=== PATIENT | female | born 1980 | race Native Hawaiian/Other Pacific Islander ===

== ENCOUNTER 2017-03-11 12:39 | Emergency (ER) | payer SELFPAY ==
[2017-03-11] MEDS ORDERED: NS 0.9% 1000 ML* 1,000 ML IV ONE (14:24)
--- NOTE | 2017-03-11 14:56 | RAD ---
HISTORY: Syncope COMPARISONS: None VIEWS: 4: Frontal dual-energy and lateral views of the chest. FINDINGS: CARDIOMEDIASTINAL SILHOUETTE: The cardiomediastinal silhouette is normal. TRISH: The trish are normal. PLEURA: The costophrenic angles are sharp. No pleural abnormalities are noted. LUNG PARENCHYMA: The lungs are clear. ABDOMEN: The upper abdomen is clear. There is no subphrenic gas. BONES AND SOFT TISSUES: No bone or soft tissue abnormalities are noted. OTHER: None. IMPRESSION: NO ACTIVE CARDIOPULMONARY DISEASE.
[2017-03-11 15:06] LABS: Hematocrit 37 % (35-47); Hemoglobin 11.7 g/dl (12.0-16.0); Mean Corpuscular HGB Conc 32 g/dl (31-36); Mean Corpuscular Hemoglobin 31 pg (27-31); Mean Corpuscular Volume 97 fL (80-97); Mean Platelet Volume 11 um3 (7.4-10.4); Red Blood Count 3.78 10^6/ul (4.0-5.4); Red Cell Distribution Width 18 % (10.5-15)
[2017-03-11 15:08] LABS: Comments Flag Yes
--- NOTE | 2017-03-11 15:08 | RAD ---
HISTORY: Syncope COMPARISONS: None TECHNIQUE: Multiple contiguous axial CT scans were obtained of the head without intravenous contrast. FINDINGS: HEMORRHAGE/INFARCT: There is no hemorrhage or acute infarct. MASSES/SHIFT: There is no mass or shift. EXTRA-AXIAL SPACES: There are no extra-axial fluid collections. SULCI AND VENTRICLES: The sulci and ventricles are normal in size and position for the patient's stated age. CEREBRUM: There are no focal parenchymal abnormalities. BRAINSTEM: There are no focal parenchymal abnormalities. CEREBELLUM: There are no focal parenchymal abnormalities. VESSELS: The vessels are grossly normal. PARANASAL SINUSES: The paranasal sinuses are clear. ORBITS: The orbits are unremarkable. BONES AND SOFT TISSUE: No bone or soft tissue abnormalities are noted. OTHER: None IMPRESSION: NO ACUTE INTRACRANIAL PATHOLOGY.
[2017-03-11 15:10] LABS: Add Diff/Slide Review? Slide Review Added
[2017-03-11 15:21] LABS: ALT 38 U/L (7-52); AST 125 U/L (13-39); Albumin 3.4 g/dL (3.2-5.2); Alkaline Phosphatase 102 U/L (34-104); Anion Gap 7 mmol/L (2-11); BUN/Creatinine Ratio 6.9 (8-20); Blood Urea Nitrogen 4 mg/dL (6-24); CO2 Carbon Dioxide 28 mmol/L (22-32); Calcium 9.2 mg/dL (8.6-10.3); Chloride 97 mmol/L (101-111); EGFR African American 149.6 (>60); EGFR Non-African American 116.3 (>60); Globulin 4.1 g/dL (2-4); Glucose 93 mg/dL (70-100); Magnesium 1.8 mg/dL (1.9-2.7); Potassium 3.9 mmol/L (3.5-5.0); Sodium 132 mmol/L (133-145); Total Protein 7.5 g/dL (6.4-8.9)
[2017-03-11 15:23] LABS: Troponin I 0.02 ng/mL (<0.04)
[2017-03-11 15:59] LABS: Alcohol < 10 mg/dL (<10)
[2017-03-11 16:02] LABS: TSH (Thyroid Stimulating Horm) 3.06 mcIU/mL (0.34-5.60)
[2017-03-11 16:30] LABS: Urine Bacteria Absent (Absent); Urine Bilirubin Negative (Negative); Urine Glucose Negative (Negative); Urine Nitrite Negative (Negative)
[2017-03-11] MEDS ORDERED: Tetan/Diph/Pertus SYR(Tdap)* 0.5 ML SYR(BOOSTRIX) use SYR IM ONE (16:53)
[2017-03-11 18:06] VITALS: BP 132/87
--- NOTE | 2017-03-12 09:06 | ED ---
Miko Turner Alfonso, scribed for Duc Ricks MD on 03/11/17 at 1427 . Burn - HPI Summary HPI Summary: This patient is a 36 year old F presenting to [facility] with a chief complaint of hand lockwood that occurred at 1200 earlier today. Pt reports she was at work at [employer] and I pulled the basket to fast and got burned when oil splattered on her bilateral hands. Pt rates the pain 6/10 in severity. Symptoms aggravated and alleviated by nothing. Pt reports syncope, dizziness, and lightheadedness. - History of Current Complaint Chief Complaint: EDDizziness Stated Complaint: AMS Time Seen by Provider: 03/11/17 13:11 Hx Obtained From: Patient Occurred: Hours Ago - 1200 today Length of Exposure: Unknown Onset Severity: Moderate Current Severity: Moderate Pain Intensity: 6 Pain Scale Used: 0-10 Numeric Location: RUE - Hand, LUE - Hand Aggravating: Nothing Alleviating: Nothing Associated Signs & Symptoms: Positive: LOC/Duration: - Syncope, dizziness, and lightheadedness - Allergy/Home Medications Allergies/Adverse Reactions: Allergies Allergy/AdvReac Type Severity Reaction Status Date / Time No Known Allergies Allergy Verified 07/03/15 12:20 Home Medications: Home Medications Diphenhydramine-Acetaminophen [Tylenol Pm Extra Strength 500-25 mg] 1 tab PO BEDTIME PRN 03/11/17 [History Confirmed 03/11/17] Escitalopram (NF) [Lexapro 10 mg (NF)] 10 mg PO DAILY 03/11/17 [History Confirmed 03/11/17] Naproxen TAB* [Naprosyn 250 mg TAB*] 500 mg PO BID WITH MEALS 03/11/17 [History Confirmed 03/11/17] PMH/Surg Hx/FS Hx/Imm Hx - Surgical History Surgery Procedure, Year, and Place: vaginal cyst (not sure) - Immunization History Date of Tetanus Vaccine: 2015 Date of Influenza Vaccine: NO Infectious Disease History: No Infectious Disease History: Denies: Hx Clostridium Difficile, Hx Hepatitis, Hx Human Immunodeficiency Virus (HIV), Hx of Known/Suspected MRSA, Hx Shingles, Hx Tuberculosis, Hx Known/ Suspected VRE, Hx Known/Suspected VRSA, History Other Infectious Disease, Traveled Outside the [place] in Last 30 Days - Family History Known Family History: Positive: Other - Cancer - Social History Alcohol Use: Daily Alcohol Amount: 2 glasses of wine Substance Use Type: Reports: None Smoking Status (MU): Heavy Every Day Tobacco Smoker Amount Used/How Often: 1/2-1 ppd Review of Systems Positive: Other - Bilateral hand lockwood Neurological: Other - Positive dizzy and lightheaded Positive: Syncope All Other Systems Reviewed And Are Negative: Yes Physical Exam - Summary Physical Exam Summary: VITAL SIGNS: Reviewed. GENERAL: Patient is a thin female who is lying comfortable in the stretcher. Patient is not in any acute respiratory distress. HEAD AND FACE: Normocephalic EYES: PERRLA, EOMI x 2. EARS: Hearing grossly intact. MOUTH: Oropharynx within normal limits. NECK: Supple, trachea is midline, no adenopathy, no JVD, no carotid bruit. CHEST: Symmetric, no tenderness at palpation LUNGS: Clear to auscultation bilaterally. No wheezing or crackles. CVS: Regular rate and rhythm, S1 and S2 present, no murmurs or gallops appreciated. ABDOMEN: Soft, non-tender. Bowel sounds are normal. No abdominal abnormal pulsations. EXTREMITIES: Full ROM in all major joints, no edema, no cyanosis or clubbing. NEURO: Alert and oriented x 3. No acute neurological deficits. Speech is normal and follows commands. SKIN: Second degree at left pinky and left hand dorsal aspect 1 cm x .5 cm. Second degree burn with partial thickness at right hand dorsal aspect. No circumferential. Triage Information Reviewed: Yes Vital Signs On Initial Exam: Initial Vitals Temp Pulse Resp BP Pulse Ox 99 F 90 16 137/76 100 03/11/17 12:50 03/11/17 12:50 03/11/17 12:50 03/11/17 12:50 03/11/17 12:50 Vital Signs Reviewed: Yes - [place] Coma Scale Coma Scale Total: 15 Burn Calculation - [place] Formula for Fluid Resuscitation Weight: 96 lb 24 -Hour Fluid Replacement: 0.0 Diagnostics - Vital Signs Vital Signs Temp Pulse Resp BP Pulse Ox 03/11/17 14:00 90 18 126/75 100 03/11/17 13:30 89 19 123/78 100 03/11/17 13:02 92 15 100 03/11/17 13:00 137/85 03/11/17 12:50 99 F 90 16 137/76 100 - Laboratory Lab Results: Lab Results 03/11/17 03/11/17 03/11/17 Range/Units 14:58 14:58 14:58 WBC 5.0 (3.5-10.8) 10^3/ul RBC 3.78 L (4.0-5.4) 10^6/ul Hgb 11.7 L (12.0-16.0) g/dl Hct 37 (35-47) % MCV 97 (80-97) fL MCH 31 (27-31) pg MCHC 32 (31-36) g/dl RDW 18 H (10.5-15) % Plt Count 79 L (150-450) 10^3/ul MPV 11 H (7.4-10.4) um3 Neut % (Auto) 72.9 (38-83) % Lymph % (Auto) 16.4 L (25-47) % [place] % (Auto) 8.3 (1-9) % Eos % (Auto) 0.8 (0-6) % Baso % (Auto) 1.6 (0-2) % Absolute Neuts (auto) 3.7 (1.5-7.7) 10^3/ul Absolute Lymphs (auto) 0.8 L (1.0-4.8) 10^3/ul Absolute Monos (auto) 0.4 (0-0.8) 10^3/ul Absolute Eos (auto) 0 (0-0.6) 10^3/ul Absolute Basos (auto) 0.1 (0-0.2) 10^3/ul Absolute Nucleated RBC 0 10^3/ul Nucleated RBC % 0.1 Sodium 132 L (133-145) mmol/L Potassium 3.9 (3.5-5.0) mmol/L Chloride 97 L (101-111) mmol/L Carbon Dioxide 28 (22-32) mmol/L Anion Gap 7 (2-11) mmol/L BUN 4 L (6-24) mg/dL Creatinine 0.58 (0.51-0.95) mg/dL Est GFR ( Amer) 149.6 (>60) Est GFR (Non-Af Amer) 116.3 (>60) BUN/Creatinine Ratio 6.9 L (8-20) Glucose 93 (70-100) mg/dL Lactic Acid 1.0 (0.5-2.0) mmol/L Calcium 9.2 (8.6-10.3) mg/dL Magnesium 1.8 L (1.9-2.7) mg/dL Total Bilirubin 0.70 (0.2-1.0) mg/dL AST 125 H (13-39) U/L ALT 38 (7-52) U/L Alkaline Phosphatase 102 (34-104) U/L Troponin I 0.02 (<0.04) ng/mL B-Natriuretic Peptide ( - 100) pg/mL Total Protein 7.5 (6.4-8.9) g/dL Albumin 3.4 (3.2-5.2) g/dL Globulin 4.1 H (2-4) g/dL Albumin/Globulin Ratio 0.8 L (1-3) TSH 3.06 (0.34-5.60) mcIU/mL Urine Color Urine Appearance Urine pH (5-9) Ur Specific [place] (1.010-1.030) Urine Protein (Negative) Urine Ketones (Negative) Urine Blood (Negative) Urine Nitrate (Negative) Urine Bilirubin (Negative) Urine Urobilinogen (Negative) Ur Leukocyte Esterase (Negative) Urine WBC (Auto) (Absent) Urine RBC (Auto) (Absent) Ur Squamous Epith Cells (Absent) Urine Bacteria (Absent) Urine Glucose (Negative) Serum Alcohol < 10 (<10) mg/dL 03/11/17 03/11/17 Range/Units 14:58 15:46 WBC (3.5-10.8) 10^3/ul RBC (4.0-5.4) 10^6/ul Hgb (12.0-16.0) g/dl Hct (35-47) % MCV (80-97) fL MCH (27-31) pg MCHC (31-36) g/dl RDW (10.5-15) % Plt Count (150-450) 10^3/ul MPV (7.4-10.4) um3 Neut % (Auto) (38-83) % Lymph % (Auto) (25-47) % [place] % (Auto) (1-9) % Eos % (Auto) (0-6) % Baso % (Auto) (0-2) % Absolute Neuts (auto) (1.5-7.7) 10^3/ul Absolute Lymphs (auto) (1.0-4.8) 10^3/ul Absolute Monos (auto) (0-0.8) 10^3/ul Absolute Eos (auto) (0-0.6) 10^3/ul Absolute Basos (auto) (0-0.2) 10^3/ul Absolute Nucleated RBC 10^3/ul Nucleated RBC % Sodium (133-145) mmol/L Potassium (3.5-5.0) mmol/L Chloride (101-111) mmol/L Carbon Dioxide (22-32) mmol/L Anion Gap (2-11) mmol/L BUN (6-24) mg/dL Creatinine (0.51-0.95) mg/dL Est GFR ( Amer) (>60) Est GFR (Non-Af Amer) (>60) BUN/Creatinine Ratio (8-20) Glucose (70-100) mg/dL Lactic Acid (0.5-2.0) mmol/L Calcium (8.6-10.3) mg/dL Magnesium (1.9-2.7) mg/dL Total Bilirubin (0.2-1.0) mg/dL AST (13-39) U/L ALT (7-52) U/L Alkaline Phosphatase (34-104) U/L Troponin I (<0.04) ng/mL B-Natriuretic Peptide 81 ( - 100) pg/mL Total Protein (6.4-8.9) g/dL Albumin (3.2-5.2) g/dL Globulin (2-4) g/dL Albumin/Globulin Ratio (1-3) TSH (0.34-5.60) mcIU/mL Urine Color Yellow Urine Appearance Clear Urine pH 8.0 (5-9) Ur Specific [place] 1.002 L (1.010-1.030) Urine Protein 1+(30 mg/dl) H (Negative) Urine Ketones Negative (Negative) Urine Blood 3+ H (Negative) Urine Nitrate Negative (Negative) Urine Bilirubin Negative (Negative) Urine Urobilinogen Negative (Negative) Ur Leukocyte Esterase Negative (Negative) Urine WBC (Auto) Absent (Absent) Urine RBC (Auto) 1+(3-5/hpf) H (Absent) Ur Squamous Epith Cells Present H (Absent) Urine Bacteria Absent (Absent) Urine Glucose Negative (Negative) Serum Alcohol (<10) mg/dL Result Diagrams: 03/11/17 14:58 03/11/17 14:58 Lab Statement: Any lab studies that have been ordered have been reviewed, and results considered in the medical decision making process. - Radiology CXR Radiology Interpretation Completed By: Radiologist - NO ACTIVE CARDIOPULMONARY DISEASE. - CT Brain CT CT Interpretation Completed By: Radiologist - NO ACUTE INTRACRANIAL PATHOLOGY. - EKG 1500 Cardiac Rate: NL - BPM 88 EKG Rhythm: Sinus Rhythm EKG Interpretation: No ST elevation Burn Course/Dx - Course Course Of Treatment: This patient is a 36 year old F presenting to [facility] with a chief complaint of hand lockwood that occurred at 1200 earlier today. Pt reports she was at work at [employer] and I pulled the basket to fast and got burned when oil splattered on her bilateral hands. Pt rates the pain 6/10 in severity. Symptoms aggravated and alleviated by nothing. Pt reports syncope, dizziness, and lightheadedness. Assessment/Plan: Test results show hemoglobin of 11.7, platelets of 79, and sodium of 132. Urinalysis negative for UTI. I decided to do a brain CT since the patient had a syncope episode. Brain CT reveals NO ACUTE INTRACRANIAL PATHOLOGY. EKG reveals NSR at 88 BPM. CXR reveals NO ACTIVE CARDIOPULMONARY DISEASE. In the ED course patient given IV fluids since the patient appeared dehydrated. I applied bacitracin to the lockwood (too small to quantify percentage) , and the patient will be taking ibuprofen for the pain. An abnormal finding was the thrombocytopenia, which was not known to this patient. Otherwise, the patient has no other complains. She wants to be d/c with follow up with PCP. It was recommended for patient to follow with hematology. I offered the patient a work note and she declined .Patient is hemodynamically stable, ambulating without any abnormal gait. Patient was instructed to return to the ED for dizziness, weakness, syncopal episodes, fever, chills, or any other symptoms. She understands and agrees. - Diagnoses Provider Diagnosis: Partial thickness burn, Vasovagal syncope Discharge - Discharge Plan Condition: Stable Disposition: HOME Patient Education Materials: Second Degree Burn (ED), Syncope (ED) Referrals: Ting Singer [Primary Care Provider] - 2 Days The documentation as recorded by the Miko morales Alfonso accurately reflects the service I personally performed and the decisions made by me, Duc Ricks MD.
== END 2017-03-11 18:10 | disposition home or self-care (01) ==
LOC: ED 12:39
DX: T23.009A Burn of unspecified degree of unspecified hand, unspecified site, initial encounter (principal); R55 Syncope and collapse; R42 Dizziness and giddiness; X10.2XXA Contact with fats and cooking oils, initial encounter; Y93.G3 Activity, cooking and baking; Y92.89 Other specified places as the place of occurrence of the external cause; Y99.9 Unspecified external cause status
CPT/HCPCS: 36415; 70450; 71020; 80053; 80320; 81003; 81015; 83605; 83735; 83880; 84443; 84484; 85025; 90471; 90715; 93005; 99283; G0480